=== PATIENT | male | born 1955 | race Caucasian/White ===

== ENCOUNTER 2021-05-23 10:54 | Emergency (ER) | payer BC, MEDICARE ==
[~2021-05-23] VITALS: Ht 180 cm; Wt 75.0 kg
[~2021-05-23 10:54] MED LIST: LISI1TAB10 PO
--- NOTE | 2021-05-23 11:08 | ED Lower Extremity ---
General Stated Complaint: L ARTERIAL OCCLUSION Source: patient Exam Limitations: no limitations History of Present Illness Date Seen by Provider: May 23, 2021 Time Seen by Provider: 11:04 Initial Comments To ER with left lower extremity arterial clot. He was sent from Dr. Newberry's office. He presented to him with reports of pain and tingling to the left lower extremity since 05/17/2021. The night before he slept with his left leg overlying his right leg. When he awakened he had tingling and numbness in his left leg. Since then he has pain that comes about with exertion and goes away with rest. He followed up with Dr. Newberry today who noticed the foot to be pulseless and pale along with the complaint of paresthesia by the patient he was referred to the emergency room. Patient has a history of hypertension managed with lisinopril. No coronary stents or peripheral stents. History of cigarette smoking but he quit in 1998. Onset: just prior to arrival Severity: moderate Pain/Injury Location: left leg Method of Injury: unknown Allergies and Home Medications Allergies Coded Allergies: No Known Drug Allergies (Unverified , 03/14/11) Home Medications Hctz/Lisinopril 1 Tab Tablet, 1 EACH PO DAILY, (Reported) Patient Home Medication List Home Medication List Reviewed: Yes Review of Systems Constitutional: see HPI EENTM: see HPI Respiratory: no symptoms reported Cardiovascular: no symptoms reported Genitourinary: no symptoms reported Musculoskeletal: see HPI Skin: no symptoms reported Psychiatric/Neurological: No Symptoms Reported Physical Exam Vital Signs Vital Signs - First Documented 05/23/21 11:10 Temp 36.1 Pulse 70 Resp 12 B/P (MAP) 190/121 (144) Pulse Ox 99 O2 Delivery Room Air Capillary Refill : Height, Weight, BMI Height: '" Weight: lbs. oz. kg; BMI Method: General Appearance: WD/WN, no apparent distress, other (EKG shows bigeminy with a rate of 86. He denies any chest pain now or at any time, denies shortness of breath) HEENT: PERRL/EOMI, normal ENT inspection Neck: non-tender, full range of motion Respiratory: no respiratory distress, no accessory muscle use Hips: bilateral hip non-tender, bilateral hip normal inspection, bilateral hip normal range of motion Legs: left leg other (Lower extremity from the knee distally is cool, pale as compared to the right. Absent capillary refill. I cannot palpate a dorsalis pedis or posterior tibial pulse. Nor can I Doppler blood flow in these arteries. I am able to Doppler blood flow in the popliteal fossa.) Knees: bilateral knee non-tender, bilateral knee normal inspection, bilateral knee normal range of motion Ankles: bilateral ankle non-tender, bilateral ankle normal inspection, bilateral ankle normal range of motion Feet: bilateral foot non-tender, bilateral foot normal inspection, bilateral foot normal range of motion Neurologic/Psychiatric: alert, normal mood/affect, oriented x 3 Skin: normal color, warm/dry Progress/Results/Core Measures Results/Orders Lab Results Laboratory Tests Test 05/23/21 11:03 Range/Units White Blood Count 8.0 4.3-11.0 10^3/uL Red Blood Count 4.92 4.30-5.52 10^6/uL Hemoglobin 17.2 13.3-17.7 g/dL Hematocrit 51 40-54 % Mean Corpuscular Volume 103 H 80-99 fL Mean Corpuscular Hemoglobin 35 H 25-34 pg Mean Corpuscular Hemoglobin Concent 34 32-36 g/dL Red Cell Distribution Width 12.7 10.0-14.5 % Platelet Count 271 130-400 10^3/uL Mean Platelet Volume 10.0 9.0-12.2 fL Immature Granulocyte % (Auto) 0 % Neutrophils (%) (Auto) 49 42-75 % Lymphocytes (%) (Auto) 31 12-44 % Monocytes (%) (Auto) 12 0-12 % Eosinophils (%) (Auto) 6 0-10 % Basophils (%) (Auto) 1 0-10 % Neutrophils # (Auto) 4.0 1.8-7.8 10^3/uL Lymphocytes # (Auto) 2.5 1.0-4.0 10^3/uL Monocytes # (Auto) 1.0 0.0-1.0 10^3/uL Eosinophils # (Auto) 0.5 H 0.0-0.3 10^3/uL Basophils # (Auto) 0.1 0.0-0.1 10^3/uL Immature Granulocyte # (Auto) 0.0 0.0-0.1 10^3/uL Prothrombin Time 12.9 12.2-14.7 SEC INR Comment 0.9 0.8-1.4 Activated Partial Thromboplast Time 35 24-35 SEC Sodium Level 140 135-145 MMOL/L Potassium Level 4.0 3.6-5.0 MMOL/L Chloride Level 107 98-107 MMOL/L Carbon Dioxide Level 23 21-32 MMOL/L Anion Gap 10 5-14 MMOL/L Blood Urea Nitrogen 14 7-18 MG/DL Creatinine 0.90 0.60-1.30 MG/DL Estimat Glomerular Filtration Rate 84 BUN/Creatinine Ratio 16 Glucose Level 97 70-105 MG/DL Calcium Level 9.9 8.5-10.1 MG/DL Corrected Calcium 9.7 8.5-10.1 MG/DL Magnesium Level 2.0 1.6-2.4 MG/DL Total Bilirubin 1.0 0.1-1.0 MG/DL Aspartate Amino Transf (AST/SGOT) 22 5-34 U/L Alanine Aminotransferase (ALT/SGPT) 21 0-55 U/L Alkaline Phosphatase 94 40-136 U/L Troponin I < 0.028 <0.028 NG/ML Total Protein 7.3 6.4-8.2 GM/DL Albumin 4.2 3.2-4.5 GM/DL My Orders Orders - KIESHA PORTILLO APRN Heparin Drip [id number] Unit/500ml (Heparin (05/23/21 11:15) Heparin (Bolus Per Protocol) (Heparin (B (05/23/21 11:15) Cbc With Automated Diff (05/23/21 11:02) Comprehensive Metabolic Panel (05/23/21 11:02) Protime With Inr (05/23/21 11:02) Partial Thromboplastin Time (05/23/21 11:02) Us Left Low Ext Arterial [id number] (05/23/21 11:02) Ekg Tracing (05/23/21 14:07) Magnesium (05/23/21 14:19) Troponin I (05/23/21 14:19) Medications Given in ED Current Medications Medications Dose Ordered Sig/Jimmy Route Start Time Stop Time Status Last Admin Dose Admin Heparin Sodium (Porcine) HEPARIN FULL PROTOC... ONCE ONCE IV 05/23/21 11:15 05/23/21 11:16 DC 05/23/21 11:40 5,000 UNIT Heparin Sodium/ Dextrose 500 ml @ 0 mls/hr Q0M ONCE IV 05/23/21 11:15 05/23/21 11:16 DC 05/23/21 11:41 24 MLS/HR Vital Signs/I&O 05/23/21 11:10 Temp 36.1 Pulse 70 Resp 12 B/P (MAP) 190/121 (144) Pulse Ox 99 O2 Delivery Room Air Departure Communication (Admissions) I spoke with Dr. Mitchell from cardiology here he does not do peripheral vascular procedures. 1332-I have spoken with [facility] in [place] neither of them can accept. I spoke with , they will work on placement but advised to keep calling other facilities. I spoke with [facility] in [place] none of them have the ability to take this patient. I spoke with [facility] in [place] they also do not have bed available. Currently he is on a heparin drip and his pain is controlled. 1351-vascular surgeon from has called back after reviewing the images to report that if there is no pain at rest and no open wound then this can be followed up outpatient. 1502-I am using [employer] control to help find bed placement. So far they have spoken with [facility], [facility], [facility], via [facility]. All of them have declined 1521- is I spoke with Dr. Keating from vascular services at [facility]. She has accepted the patient to the emergency room. Helicopter called currently. Remains sinus rhythm with frequent PVCs, about 1 PVC every third or fourth beat. No couplets or triplets. No chest pain no shortness of breath. Blood pressure 150/90. Impression Primary Impression: Acute occlusion of artery of lower extremity Disposition: XFER SHT-TRM HOSP Condition: Stable Departure-Patient Inst. Referrals: VIOLETTA NEWBERRY MD (PCP/Family) Primary Care Physician KIESHA PORTILLO APRN May 23, 2021 11:08
[2021-05-23 11:10] VITALS: BP 190/121
[2021-05-23 11:11] LABS: BASOPHILS # (AUTO) 0.1 10^3/uL (0.0-0.1); BASOPHILS % (AUTO) 1 % (0-10); EOSINOPHILS # (AUTO) 0.5 10^3/uL (0.0-0.3); EOSINOPHILS % (AUTO) 6 % (0-10); HEMATOCRIT 51 % (40-54); HEMOGLOBIN 17.2 g/dL (13.3-17.7); LYMPHOCYTES # (AUTO) 2.5 10^3/uL (1.0-4.0); LYMPHOCYTES % (AUTO) 31 % (12-44); MEAN CORPUSCULAR HEMOGLOBIN 35 pg (25-34); MEAN CORPUSCULAR HGB CONC 34 g/dL (32-36); MEAN CORPUSCULAR VOLUME 103 fL (80-99); MONOCYTES % (AUTO) 12 % (0-12); NEUTROPHILS % (AUTO) 49 % (42-75); PLATELET COUNT 271 10^3/uL (130-400)
[2021-05-23] MEDS ORDERED: HEParin 1000 UNIT/ML (10ML VIAL) FOR BOLUS IV ONE (11:15)
[2021-05-23] MEDS ORDERED: HEParin DRIP 25000 UNIT/500ML 500 ML IV ONE (11:15)
[2021-05-23 11:25] LABS: INR 0.9 (0.8-1.4); PROTHROMBIN TIME PATIENT 12.9 SEC (12.2-14.7)
[2021-05-23 11:26] LABS: ALBUMIN 4.2 GM/DL (3.2-4.5)
[2021-05-23 11:28] LABS: CALCIUM 9.9 MG/DL (8.5-10.1)
[2021-05-23 11:29] LABS: TOTAL PROTEIN 7.3 GM/DL (6.4-8.2)
[2021-05-23 11:33] LABS: CREATININE SERUM 0.9 MG/DL (0.60-1.30)
--- NOTE | 2021-05-23 12:04 | Diagnostic Imaging Report ---
EXAMINATION: US Lower Extremity Arterial Duplex Left. TECHNIQUE: Multiple real-time grayscale images were obtained over the left lower extremity in various projections. Additional duplex Doppler and color Doppler images were also obtained. HISTORY: Left lower extremity with decreased pulses. COMPARISON: None available. FINDINGS: Left lower extremity: Normal triphasic waveforms in the left common femoral, superficial femoral arteries. Biphasic waveforms in the proximal popliteal artery. There is near complete occlusion of the distal popliteal artery. There is a mild amount of distal collateralization with monophasic flow. There are decreased velocities and monophasic waveforms with tardus parvus appearance seen within the posterior tibial, peroneal, anterior tibial, and dorsalis pedis arteries. IMPRESSION: 1. Hemodynamically significant stenosis within the distal popliteal artery with decreased flow and abnormal tardus parvus waveforms within the arteries below the knee. Dictated by: Dictated on workstation # [id number]
== END 2021-05-23 16:30 | disposition short-term general hospital (02) ==
LOC: EDUNIT# 10:54 → ER 10:56
DX: I77.1 Stricture of artery (principal); I10 Essential (primary) hypertension; Z87.891 Personal history of nicotine dependence; Z79.899 Other long term (current) drug therapy
CPT/HCPCS: 36415; 80053; 83735; 84484; 85025; 85610; 85730; 93005; 93926; 96374

== ENCOUNTER 2021-11-10 05:40 | Outpatient (CLI) | payer MEDICARE ==
[~2021-11-10] VITALS: Ht 180.3 cm; Wt 76.4 kg
[2021-11-11] MEDS ORDERED: LISI1TAB46 PO (15:45)
[2021-11-11] MEDS ORDERED: CLOP75TA28 PO (15:45)
[2021-11-11] MEDS ORDERED: ATOR80TA76 PO (15:45)
== END 2021-11-11 16:05 | disposition home or self-care (01) ==
LOC: PREOP 05:40
PROVIDERS: ATTEND Internal Medicine
DX: Z01.818 Encounter for other preprocedural examination (principal)

== ENCOUNTER 2021-11-18 07:45 | Day surgery (SDC) | payer MEDICARE ==
--- NOTE | 2021-11-09 14:43 | HISTORY AND PHYSICAL ---
DATE OF SERVICE: COLONOSCOPY HISTORY AND PHYSICAL DATE OF ADMISSION: 11/18/2021 HISTORY OF PRESENT ILLNESS: The patient is a 65-year-old white male seen in the office for followup of hypertension as well as peripheral vascular disease. He had had acute limb ischemia of the left lower extremity in mid-May that required emergent therapy. He ultimately underwent right femoral to left popliteal bypass as well as angioplasty of the left lower extremity in retrograde fashion per his report. He has done well since that time and he has had no claudication, but once felt warm. He still has a little bit of residual numbness in the foot, but no reported weakness. He had been drinking about six packs a day previous to all of this, but has given up alcohol and reports that he feels well. He has been sleeping better. He has had no chest discomforts. He had previous history of colon polyps that has been 10 years since his last colonoscopy, so he is being set up for screening colonoscopy. He is fully vaccinated for COVID. He is not aware of any family history for colon cancer. PHYSICAL EXAMINATION: GENERAL: Reveals a well-appearing white male, who appeared to be in no acute distress. VITAL SIGNS: Weight was up 5 pounds from June at 169 and blood pressure 124/76. HEENT: Unremarkable. CHEST: Clear. CARDIOVASCULAR: Reveals regular rate and rhythm without murmur, S3 or S4. ABDOMEN: Soft and supple without mass, organomegaly or tenderness. EXTREMITIES: Reveal no cyanosis, clubbing or edema. Posterior tibial pulses are 2+ and symmetrical. Feet are warm. I am unable to appreciate a dorsalis pedis pulse, on the left foot, capillary refill less than 2 seconds. ASSESSMENT AND PLAN: Peripheral vascular disease. Doing well status post right femoral to left popliteal bypass as well as some retrograde angioplasty of at least one of the other arteries below the level of the knee. We will continue Plavix and statin therapy. The patient is being set up for screening colonoscopy within the next month. Prep instructions with the Suprep kit were given and questions were answered. The patient is to hold Plavix one week prior to the procedure with plans on resumption afterwards, timing dependent on whether or not polyps are removed. Job ID: [id number] DocumentID: [id number] Dictated Date: 10/28/2021 15:45:01 Parking Patroller Date: 10/28/2021 16:38:27 Dictated By: VIOLETTA KENNEDY MD
[~2021-11-18] VITALS: Ht 180.3 cm; Wt 76.4 kg
[~2021-11-18 07:45] MED LIST changes: +ATOR80TA76 PO; +CLOP75TA28 PO; +LISI1TAB46 PO
[2021-11-18] MEDS ORDERED: LACTATED RINGERS 1,000 ML IV STA (07:47)
[2021-11-18] MEDS ORDERED: LACTATED RINGERS 1,000 ML IV ONE (07:48)
[2021-11-18 08:00] VITALS: BP 121/73
[2021-11-18] MEDS ORDERED: LIDOCAINE JELLY 2% 6 ML SYRINGE MM PRN (08:00)
[2021-11-18] MEDS ORDERED: MIDAZOLAM 2 MG/2 ML (VERSED) VIAL ONE (08:07)
[2021-11-18] MEDS ORDERED: PROPOFOL INJECTION 50 ML IV ONE (08:07)
--- NOTE | 2021-11-18 08:15 | Pre-Op Note & Conscious Sedat ---
Pre-Operative Progress Note H&P Reviewed The H&P was reviewed, patient examined and no changes noted. Date H&P Reviewed: Nov 18, 2021 Time H&P Reviewed: 08:00 Conscious Sedation Pre-Proced ASA Score 2 For ASA 3 and 4: Consider anesthesia and medical clearance. Also, for patients with a history of failed moderate sedation consider anesthesia. Airway Lungs Heart ASA score ASA 1: a normal healthy patient ASA 2: a patient with a mild systemic disease (mid diabetes, controlled hypertension, obesity ASA 3: a patient with a severe systemic disease that limits activity (angina, COPD, prior Myocardial infarction) ASA 4: a patient with an incapacitating disease that is a constant threat to life (CHF, renal failure) ASA 5: a moribund patient not expected to survive 24 hrs. (ruptured aneurysm) ASA 6: a declared brain- patient whose organs are being harvested. For emergent operations, add the letter E after the classification Mallampati Classification Grade 2 Sedation Plan Analgesia, Amnesia, Plan communicated to team members, Discussed options with patient/fam, Discussed risks with patient/fam The patient is an appropriate candidate to undergo the planned procedure, sedation, and anesthesia. The patient immediately re-assessed prior to indication. VIOLETTA KENNEDY MD Nov 18, 2021 08:14
[2021-11-18] MEDS ORDERED: ATROPINE INJ 0.4 MG/ML SDV ONE (08:41)
[2021-11-18 08:47] VITALS: BP 101/69
[2021-11-18 08:52] VITALS: BP 105/69
[2021-11-18 08:55] VITALS: BP 124/75
--- NOTE | 2021-11-18 09:21 | Anesthesia-General Post-Op ---
MAC Patient Condition Mental Status/LOC: Same as Preop Cardiovascular: Satisfactory Nausea/Vomiting: Absent Respiratory: Satisfactory Pain: Controlled Complications: Absent Post Op Complications Complications None Follow Up Care/Instructions Patient Instructions None needed. Anesthesiology Discharge Order Discharge Order Patient is doing well, no complaints, stable vital signs, no apparent adverse anesthesia problems. No complications reported per nursing. AUGUSTINA KRAFT CRNA Nov 18, 2021 09:21
[2021-11-18 09:25] VITALS: BP 126/80
[2021-11-18 09:40] VITALS: BP 126/80
--- NOTE | 2021-11-18 13:04 | OPERATIVE REPORT ---
DATE OF SERVICE: COLONOSCOPY SUMMARY INDICATION FOR THE PROCEDURE: Screening. I am his primary care physician. DESCRIPTION OF PROCEDURE: The patient was placed in the left lateral decubitus position. Prior to undergoing colonoscopy, digital rectal evaluation was performed. Anal sphincter tone was normal and the perianal reflexes intact. Prostate is unremarkable to digital inspection, small in size. No abnormalities were noted on digital inspection of anal canal or distal rectal vault. The colonoscope was then inserted into the rectum and under direct visualization advanced to cecum. The cecum was identified by identification of ileocecal valve and cecal strap. Photographic documentation was obtained. Careful inspection was made as the colonoscope was withdrawn. The quality of prep was fair. FINDINGS: Present in distal rectum were 2 adjacent 3 to 4 mm polyps. They were photographed, biopsied and ablated with no subsequent blood loss using the hot forceps. A similar polyp was noted in the distal sigmoid colon, which was biopsied and ablated as well with no blood loss. Several small sigmoid diverticulum were present without evidence for diverticulitis. The descending colon, splenic flexure, transverse colon, hepatic flexure, ascending colon, and cecum were unremarkable. ASSESSMENT: Three diminutive polyps were removed. We will await histopathology report, but if there are no surprises, we will likely recommend consideration for 10-year screening interval. Several small sigmoid diverticulum were present without evidence of diverticulitis with an otherwise normal colonoscopy to the cecum. Job ID: [id number] DocumentID: [id number] Dictated Date: 11/18/2021 09:37:02 Accounting Machine Mechanic Date: 11/18/2021 13:03:07 Dictated By: VIOLETTA KENNEDY MD [facility]
== END 2021-11-18 09:53 | disposition home or self-care (01) ==
LOC: ENDO 07:45
PROVIDERS: ATTEND Internal Medicine
DX: Z12.11 Encounter for screening for malignant neoplasm of colon (principal); K62.1 Rectal polyp; K63.5 Polyp of colon; K57.30 Diverticulosis of large intestine without perforation or abscess without bleeding; I10 Essential (primary) hypertension; I73.9 Peripheral vascular disease, unspecified; Z79.899 Other long term (current) drug therapy; Z79.02 Long term (current) use of antithrombotics/antiplatelets

== ENCOUNTER 2022-04-27 05:31 | Outpatient (CLI) | payer MEDICARE ==
[~2022-04-27] VITALS: Ht 180.3 cm; Wt 75.7 kg
== END 2022-05-02 14:47 ==
LOC: PREOP 05:31
PROVIDERS: ATTEND Surgery
DX: Z01.818 Encounter for other preprocedural examination (principal); K40.90 Unilateral inguinal hernia, without obstruction or gangrene, not specified as recurrent

== ENCOUNTER 2022-05-04 05:57 | Day surgery (SDC) | payer MEDICARE ==
[~2022-05-04] VITALS: Ht 180.3 cm; Wt 75.7 kg
[2022-05-04] VITALS (11 sets, daily range): BP systolic 97–136; BP diastolic 51–90
[2022-05-04] MEDS ORDERED: ceFAZolin 2 GM IV Premixed 50 ML IV ONE (06:00)
[2022-05-04] MEDS: LACTATED RINGERS 1,000 ML IV PRN ×2 (06:15→09:26)
[2022-05-04] MEDS ORDERED: LIDOCAINE/EPI 2% 1:200,00 (XYLOCAINE) 20 ML VIAL ONE (07:21)
[2022-05-04] MEDS ORDERED: proPOfol 200 MG/20 ML (DIPRIVAN) VIAL IV ONE (07:23)
[2022-05-04] MEDS ORDERED: LIDOCAINE PF 2% 5 ML (XYLOCAINE) VIAL ONE (07:23)
[2022-05-04] MEDS ORDERED: fentaNYL INJ 100 MCG/2 ML AMP ONE ×2 (07:23→10:08)
[2022-05-04] MEDS ORDERED: MIDAZOLAM 2 MG/2 ML (VERSED) VIAL ONE (07:25)
--- NOTE | 2022-05-04 08:03 | Progress Note-Pre Operative ---
Pre-Operative Progress Note H&P Reviewed The H&P was reviewed, patient examined and no changes noted. Date Seen by Provider: May 04, 2022 Time Seen by Provider: 08:03 Date H&P Reviewed: May 04, 2022 Time H&P Reviewed: 08:03 Pre-Operative Diagnosis: right inguinal hernia CAITLIN BRYSON DO May 04, 2022 08:03
[2022-05-04] MEDS ORDERED: ROCURONIUM 50 MG/5 ML (ZEMURON) VIAL IV ONE (08:22)
--- NOTE | 2022-05-04 10:29 | Progress Note-Post Operative ---
Post-Operative Progess Note Surgeon (s)/Linter Tender (s) Surgeon CAITLIN BRYSON DO Linter Tender: Dr. Watts Pre-Operative Diagnosis right inguinal hernia Post-Operative Diagnosis incarcerated right indirect, direct inguinal hernia, cord lipoma Procedure & Operative Findings Date of Procedure 05/04/22 Procedure Performed/Findings robotic right incarcerated indirect and direct inguinal hernia repair with excision cord lipoma. Anesthesia Type general Estimated Blood Loss Estimated blood loss (mL): minimal Specimens/Packing Specimens Removed cord lipoma CAITLIN BRYSON DO May 04, 2022 10:29
[2022-05-04] MEDS ORDERED: DOCU-143 PO (10:30)
[2022-05-04] MEDS ORDERED: ACHD5005 PO (10:30)
--- NOTE | 2022-05-04 10:38 | Discharge Inst-Simple/Standard ---
Discharge Inst-Standard Discharge Medications New, Converted or Re-Newed RX: Transmitted to Pharmacy Patient Instructions/Follow Up Plan of Care/Instructions/FU: 2 weeks Oscar Hold plavix for 5 more days. Activity as Tolerated: No Discharge Diet: Regular Diet Other Inst to Patient Follow up Appt: Make appointment for 2 week. Instructions: No lifting greater than 10 pounds. No strenuous activity. May shower in 24 hours, no tub bath or soaking. Use incentive spirometer at home as directed. No Smoking Skin/Wound Care: You have special glue over your incision that will fall off on it's own. Symptoms to Report: Appetite Changes, Extremity Discoloration, Numbness/Tingling, Swelling Increased, Bleeding Excessive, Eyesight Changes, Pain Increased, Urine Color Change, Constipation(Persistent), Fever over 101 degree F, Pain/Pressure in chest, Urinating Difficulty, Cough Up/Vomit Blood, Heart Beat Irreg/Pounding, Pain/Pressure in jaw, Vaginal Bleeding Increase, Cramps in feet or legs, Lightheadedness, Pain/Pressure in shoulder, Diarrhea(Persistent), Memory Changes Suddenly, Questions/Concerns, Weight gain consecutive days, Dizziness/Fainting, Nausea/Vomiting, Shortness of Breath, Weight gain over 2 pounds If questions or concerns contact your physician Or seek help at emergency department. CAITLIN BRYSON DO May 04, 2022 10:38
--- NOTE | 2022-05-04 10:44 | Anesthesia-General Post-Op ---
General Patient Condition Mental Status/LOC: Same as Preop Cardiovascular: Satisfactory Nausea/Vomiting: Absent Respiratory: Satisfactory Pain: Controlled Complications: Absent Post Op Complications Complications None Follow Up Care/Instructions Patient Instructions None needed. Anesthesia/Patient Condition Patient Condition Patient is doing well, no complaints, stable vital signs, no apparent adverse anesthesia problems. No complications reported per nursing. JULES DINH CRNA May 04, 2022 10:44
[2022-05-04] MEDS ORDERED: HYDROmorphone 2 MG/ML VIAL (DILAUDID) IV ONE (10:45)
[2022-05-04] MEDS ORDERED: morphine INJ 10 MG/ML 1ML (SYR OR VIAL) IVP ONE (10:45)
[2022-05-04] MEDS ORDERED: ONDANSETRON 4 MG/2 ML (SDV) Z0FRAN IVP PRN (10:45)
[2022-05-04] MEDS ORDERED: ONDANSETRON 4 MG/2 ML (SDV) Z0FRAN ONE (11:12)
[2022-05-04] MEDS ORDERED: SEVOFLURANE (ULTANE) 15 ML INHAL SOLN ONE (11:12)
--- NOTE | 2022-05-04 16:25 | OPERATIVE REPORT ---
DATE OF SERVICE: 05/04/2022 PREOPERATIVE DIAGNOSIS: Right inguinal hernia. POSTOPERATIVE DIAGNOSES: Incarcerated indirect and direct inguinal hernia and cord lipoma. PROCEDURES PERFORMED: Robotic right incarcerated indirect and direct inguinal hernia repair with mesh and excision of cord lipoma. SURGEON: Caitlin Moore DO. VALUE ANALYST: Dr. Watts, assisted in retraction, dissection and closure. ANESTHESIA: General. ESTIMATED BLOOD LOSS: Minimal. COMPLICATIONS: None. INDICATIONS FOR PROCEDURE: The patient is a 66-year-old male with a right inguinal hernia. He was discussed the risks and benefits of the procedure and wishes to proceed. Consent was signed in the chart. DESCRIPTION OF PROCEDURE: The patient was taken to the operating suite. He was prepped and draped in a sterile fashion. A timeout was performed. Local anesthetic was infiltrated at the umbilicus. Cautery was used to dissect down to the fascia, which was then scored and opened and the abdomen was then entered. A 0 Vicryl was placed at the fascia for closure at the end with a [id number] fashion. The jackson trocar was inserted and pneumoperitoneum was achieved. Under direct visualization, an 8 mm trocar was placed in the right side of the abdomen and also on the left side of the abdomen. Peritoneum was then taken down with bipolar forceps and cautery scissors. This was taken down to John's ligament and then moved laterally all the way down exposing anatomy. There was an indirect and direct defect. The indirect hernia was present. There was a significant fat herniating through this and was incarcerated. This was continued to be dissected bluntly and with cautery scissors until the entire area was able to be reduced. Again, the peritoneum was then taken all the way down until 3DMax mesh was able to be inserted. It was secured to John's ligament and also laterally with 3-0 Vicryl. Adequate coverage of the defects was present. The peritoneum was then closed using a 3-0 Vicryl in running fashion. Two small holes were made in the peritoneum. These were closed with 3-0 Vicryl sutures. Prior to mesh placement, there was a cord lipoma, which was excised and obtained for specimen. Once the peritoneum was closed, the abdomen was then desufflated. The 0 Vicryl was placed in the beginning of the case, was then tied closing the 12 mm fascial defect. The trocars were removed. The skin was then closed using 4-0 Monocryl in a subcuticular fashion. The area was washed and dried and Skin Affix was placed over the incisions. The patient tolerated the procedure well without any complications. He was taken to recovery room in a stable condition. Job ID: [id number] DocumentID: [id number] Dictated Date: 05/04/2022 14:58:58 Baton Twirler Date: 05/04/2022 16:24:19 Dictated By: CAITLIN MOORE DO
== END 2022-05-04 12:20 | disposition home or self-care (01) ==
LOC: SDC 05:57
PROVIDERS: ATTEND Surgery
DX: K40.30 Unilateral inguinal hernia, with obstruction, without gangrene, not specified as recurrent (principal); D17.6 Benign lipomatous neoplasm of spermatic cord
CPT/HCPCS: 49650; 55559; 87081; C1781

== ENCOUNTER → 2022-06-30 | Outpatient (CLI) | payer MEDICARE ==
[~2022-06-30] MED LIST changes: +ACHD5005 PO; +DOCU-143 PO
--- NOTE | 2022-06-30 13:17 | Diagnostic Imaging Report ---
INDICATION: AAA COMPARISON: None TECHNIQUE: Limited abdominal sonogram was performed to evaluate the abdominal aorta. Grayscale and color-flow duplex evaluation of the abdominal aorta was performed. FINDINGS: Proximal aorta measures 2.1 x 2.3 cm. There is mild aneurysmal dilatation of the mid and distal aorta. Mid aorta measures 3.1 x 2.8 cm and the distal aorta measures 3 x 2.9 cm. Aneurysm extends approximately 8 cm in length. Bilateral common iliac arteries are within normal limits. Right common iliac artery measures 1.2 x 1.5 cm and the left measures 3.8 x 1.2 cm. There is no ascites. IMPRESSION: 1. Infrarenal abdominal aortic aneurysm as above. Dictated by: Dictated on workstation # [id number]
== END ==
LOC: RAD 07:35
PROVIDERS: ATTEND Internal Medicine
DX: I71.4 Abdominal aortic aneurysm, without rupture (principal)
CPT/HCPCS: 76775